=== PATIENT | female | born 1965 | race African-American/Black ===

== ENCOUNTER 2018-07-30 11:19 | Day surgery (SDC) | payer OTHER ==
[~2018-07-30] VITALS: Ht 167.6 cm; Wt 59.6 kg
[~2018-07-30 11:19] MED LIST: CHOL500015 PO; MULT-224 PO; OMEG1CAP23 PO; TURM1POW PO; VITA1TAB19 PO
[2018-07-30] MEDS ORDERED: LACTATED RINGERS 1,000 ML IV SCH ×2 (12:07→18:30)
[2018-07-30 12:08] VITALS: BP 126/78
[2018-07-30] MEDS ORDERED: ONDANSETRON ODT 8 MG PO ONE (13:00)
[2018-07-30] MEDS ORDERED: ACETAMINOPHEN 500 MG TABLET PO ONE (13:00)
[2018-07-30] MEDS ORDERED: SCOPOLAMINE PATCH, 1.5MG PATCH.TD72 TD ONE (13:00)
[2018-07-30] MEDS ORDERED: GABAPENTIN 300 MG CAPSULE PO ONE (13:00)
[2018-07-30] MEDS ORDERED: MIDAZOLAM 1 MG/ML, 2ML ONE (13:14)
[2018-07-30] MEDS ORDERED: FENTANYL PF 250 MCG/5ML ONE (13:14)
[2018-07-30] MEDS ORDERED: ISOSULFAN BLUE 10 MG/ML, 5ML IV ONE (13:57)
[2018-07-30] MEDS ORDERED: BUPIVACAINE/PF-EPI 0.5% 1:200K ONE (13:57)
[2018-07-30] MEDS ORDERED: EPINEPHRINE 1 MG/ML, 1ML ONE (14:03)
[2018-07-30] MEDS ORDERED: SODIUM CHLORIDE 0.9% 100 ML ONE (14:03)
[2018-07-30] MEDS ORDERED: HEPARIN 1,000 UNITS/ML, 10ML ONE (14:03)
[2018-07-30] MEDS ORDERED: BUPIVACAINE/PF 0.25% ONE (14:03)
[2018-07-30] MEDS ORDERED: SODIUM BICARBONATE 4.0%, 5ML ONE (14:03)
[2018-07-30] MEDS ORDERED: LIDOCAINE 1%, 20ML ONE (14:04)
[2018-07-30] MEDS ORDERED: ONDANSETRON 2MG/ML, 2ML ONE (14:17)
[2018-07-30] MEDS ORDERED: CEFAZOLIN 1,000 MG ONE (14:17)
[2018-07-30] MEDS ORDERED: DEXAMETHASONE 4 MG/ML, 1ML ONE (14:17)
[2018-07-30] MEDS ORDERED: ROCURONIUM 10MG/ML,5ML ONE (14:17)
[2018-07-30] MEDS ORDERED: SUCCINYLCHOLINE 20 MG/ML, 10ML ONE (14:17)
[2018-07-30] MEDS ORDERED: PROPOFOL 10 MG/ML, 20ML ONE (14:17)
[2018-07-30] MEDS ORDERED: BUPIVACAINE/PF-EPI 0.5% 1:200K INFIL ONE (14:42)
[2018-07-30] MEDS ORDERED: hydrALAzine 20 MG/ML, 1ML IV PRN (15:30)
[2018-07-30] MEDS ORDERED: LABETALOL 5MG/ML, 20ML IV PRN (15:30)
[2018-07-30] MEDS ORDERED: FENTANYL PF 100 MCG/2ML IV PRN (15:30)
[2018-07-30] MEDS ORDERED: DIPHENHYDRAMINE 50 MG/ML, 1ML IVPush PRN (15:30)
[2018-07-30] MEDS ORDERED: HYDROmorphone 2 MG/ML, 1ML IVPush PRN (15:30)
[2018-07-30] MEDS ORDERED: METOPROLOL 1 MG/ML, 5ML IV PRN (15:30)
[2018-07-30] MEDS ORDERED: PROCHLORPERAZINE 5 MG/ML, 2ML IV PRN (15:30)
[2018-07-30] MEDS ORDERED: OXYcodone 5 MG/5 ML ORAL.SOL UDC PO PRN (15:30)
[2018-07-30] MEDS ORDERED: MEPERIDINE/PF 25MG/0.5ML IVPush PRN (15:30)
[2018-07-30] MEDS ORDERED: PROMETHAZINE 25 MG/ML, 1ML IV PRN (15:30)
[2018-07-30] MEDS ORDERED: OXYcodone 5 MG/5 ML ORAL.SOL UDC ONE (17:32)
[2018-07-30] MEDS ORDERED: ONDANSETRON 2MG/ML, 2ML IVPush PRN (18:30)
[2018-07-30] MEDS ORDERED: MORPHINE SULFATE 4 MG/ML, 1ML IVPush PRN (18:30)
== END 2018-07-30 19:57 | disposition home or self-care (01) ==
LOC: OUT 11:19 → EDSTATUS 13:30 → 4NOR 17:58 → OUT 19:57
PROVIDERS: ATTEND Surgery
DX: Z45.2 Encounter for adjustment and management of vascular access device (principal); C50.212 Malignant neoplasm of upper-inner quadrant of left female breast; R59.1 Generalized enlarged lymph nodes
CPT/HCPCS: 19301; 19316; 36561; 38525; 38792; 76098; 88305; 88307; 88331; 88333; 88334; A9541; C1729; J0330; J0690; J1100; J1644; J2250; J2405; J2704; J3010; G0378; J0171; J3490

== ENCOUNTER → 2018-08-09 | Outpatient (CLI) | payer OTHER ==
[~2018-08-09] MED LIST changes: -MULT-224 PO; +MULT-642 PO
== END | disposition home or self-care (01) ==
LOC: RAD 14:21
PROVIDERS: ATTEND Surgery
DX: R60.0 Localized edema (principal); C50.212 Malignant neoplasm of upper-inner quadrant of left female breast
CPT/HCPCS: 93970

== ENCOUNTER 2018-08-23 12:26 | Outpatient (CLI) | payer OTHER | END 2018-08-23 23:59 | disposition home or self-care (01) | LOC: STAR 12:26 | PROVIDERS: ATTEND Surgery | DX: Z02.9 Encounter for administrative examinations, unspecified (principal) ==

== ENCOUNTER 2018-08-26 14:09 | Day surgery (SDC) | payer OTHER ==
[2018-08-23 12:37] VITALS: BP 122/80
[~2018-08-26] VITALS: Ht 167.6 cm; Wt 58.5 kg
[2018-08-26] MEDS ORDERED: LACTATED RINGERS 1,000 ML IV SCH (14:53)
[2018-08-26] MEDS ORDERED: SODIUM BICARBONATE 1 MEQ/ML, 50ML VIAL ONE (15:54)
[2018-08-26] MEDS ORDERED: HEPARIN 1,000 UNITS/ML, 10ML ONE (15:54)
[2018-08-26] MEDS ORDERED: BUPIVACAINE/PF 0.25% ONE (15:54)
[2018-08-26] MEDS ORDERED: LIDOCAINE 1%-EPI 1:100K, 30ML ONE (15:55)
[2018-08-26] MEDS ORDERED: EPINEPHRINE 1 MG/ML, 1ML ONE (15:55)
[2018-08-26] MEDS ORDERED: BUPIVACAINE/PF-EPI 0.5% 1:200K ONE (15:55)
[2018-08-26] MEDS ORDERED: MIDAZOLAM 1 MG/ML, 2ML ONE (15:58)
[2018-08-26] MEDS ORDERED: FENTANYL PF 100 MCG/2ML ONE (15:58)
[2018-08-26] MEDS ORDERED: FENTANYL PF 100 MCG/2ML IV PRN (16:00)
[2018-08-26] MEDS ORDERED: PROMETHAZINE 25 MG/ML, 1ML IV PRN (16:00)
[2018-08-26] MEDS ORDERED: OXYcodone 5 MG/5 ML ORAL.SOL UDC PO PRN (16:00)
[2018-08-26] MEDS ORDERED: ONDANSETRON 2MG/ML, 2ML IV PRN (16:00)
[2018-08-26] MEDS ORDERED: MIDAZOLAM 1 MG/ML, 2ML IV PRN (16:00)
[2018-08-26] MEDS ORDERED: ACETAMINOPHEN 325 MG TABLET PO PRN (16:00)
[2018-08-26] MEDS ORDERED: KETOROLAC 30 MG/1 ML ONE (16:24)
[2018-08-26] MEDS ORDERED: DEXAMETHASONE 4 MG/ML, 1ML ONE (16:49)
[2018-08-26] MEDS ORDERED: PROPOFOL 10 MG/ML, 20ML ONE (16:49)
[2018-08-26] MEDS ORDERED: CEFAZOLIN 1,000 MG ONE (16:49)
[2018-08-26] MEDS ORDERED: ONDANSETRON 2MG/ML, 2ML ONE (16:49)
== END 2018-08-26 18:10 | disposition home or self-care (01) ==
LOC: OR 14:09
PROVIDERS: ATTEND Surgery
DX: Z45.2 Encounter for adjustment and management of vascular access device (principal); C50.912 Malignant neoplasm of unspecified site of left female breast
CPT/HCPCS: 36561; 71045; 77001; C1788; J0690; J1100; J1644; J1885; J2250; J2405; J2704; J3010; J7120; 76000; J0171; J3490

== ENCOUNTER → 2019-01-06 | Outpatient (CLI) | payer OTHER | END | disposition home or self-care (01) | LOC: CFH 08:12 | PROVIDERS: ATTEND Internal Medicine Hematology & Oncology | DX: M85.89 Other specified disorders of bone density and structure, multiple sites (principal); Z78.0 Asymptomatic menopausal state | CPT/HCPCS: 77080 ==